=== PATIENT | male | born 1985 | race African-American/Black ===

== ENCOUNTER → 2023-01-27 | Emergency (ER) | payer SELFPAY ==
[~2023-01-27] MED LIST: FAMOTIDINE 20 MG/2 ML VIAL IV ONE; KETOROLAC 30 MG/ML INJ ONE; NA CHLORIDE 0.9% 1,000 ML ONE
--- NOTE | 2023-01-27 19:37 | RAD REPORT ---
EXAM DESCRIPTION: CT - Stone Protocol - 01/27/2023 6:55 pm CLINICAL HISTORY: left flank pain COMPARISON: No comparisons TECHNIQUE: Thin cut axial CT imaging of the abdomen and pelvis was performed without IV contrast. Mu ltiplanar reformats were generated and reviewed. All CT scans are performed using dose optimization technique as appropriate and may include automated exposure control or mA/KV adjustment according to patient size. FINDINGS: No suspicious findings in the lung bases. The liver, spleen, adrenal glands, and pancreas show no suspicious findings. Gallbladder and biliary tree are also without suspicious finding. Symmetric renal contour, without suspicious parenchymal findings within limits of noncontrast techniq ue. No evidence of radiopaque calculi or hydroureteronephrosis. No dilated bowel loops or bowel wall thickening. No free air, free fluid or inflammatory stranding. N o hernia, mass or bulky lymphadenopathy. The urinary bladder is without significant finding. No suspicious bony findings. IMPRESSION: No acute intra-abdominal process.
[2023-01-27 19:45] LABS: Albumin 3.7 g/dL (3.4-5.0); Bilirubin Total 0.4 mg/dL (0.2-1.0); Potassium 3.9 mEq/L (3.5-5.1); Protein, Total 8.2 g/dL (6.4-8.2)
[2023-01-27 19:46] LABS: Absolute Lymphocytes (CBC) 2.5 K/uL (0.7-4.9); Hematocrit 45.1 % (39.6-49.0); Lymphocytes % 29.3 % (15.3-44.8); MCV 87.9 fL (80-100); MPV 6.8 fL (7.6-11.3); Platelets 477 thou/uL (152-406); RBC Red Blood Cell Count 5.13 M/uL (4.33-5.43)
--- NOTE | 2023-01-27 20:15 | EDPHYS ---
Physician Documentation [facility] Name: Jack Kearns Age: 37 yrs Sex: Male : 1985 Arrival Date: 01/27/2023 Time: 17:10 Bed 7 Private MD: ED Physician Jl Shane HPI: 01/27 20:10 This 37 yrs old Black Male presents to ER via Ambulatory with complaints of Flank Pain. kdr 20:10 Patient reports he woke this morning his usual state of health. After he had gone to [facility] work and was preparing his workspace, he noted acute onset of left flank pain at the inferior costal margin. Patient has not had this before. He did fall about several months ago on his left side through his ceiling but had not had any pain from that of significance release not in this fashion. Patient denies any other trauma or injury. Patient is otherwise in his usual state of health without any other associated negative or positive review of systems.. Onset: The symptoms/episode began/occurred suddenly, this morning. Severity of symptoms: At their worst the symptoms were mild moderate in the emergency department the symptoms are unchanged. The patient has not experienced similar symptoms in the past. The patient has not recently seen a physician. Historical: - Allergies: 17:44 No Known Allergies; ko1 - Home Meds: 17:44 pregabalin 300 mg oral capsule 1 cap 2 times per day [Active]; ko1 - PMHx: 17:44 Hypertensive disorder; nerve pain; ko1 - PSHx: 17:44 None; ko1 - Immunization history:: Adult Immunizations unknown. - Social history:: Smoking status: Patient denies any tobacco usage or history of. ROS: 20:10 Constitutional: Negative for fever, chills, and weight loss, Eyes: Negative for injury, kdr pain, redness, and discharge, ENT: Negative for injury, pain, and discharge, Neck: Negative for injury, pain, and swelling, Cardiovascular: Negative for chest pain, palpitations, and edema, Respiratory: Negative for shortness of breath, cough, wheezing, and pleuritic chest pain, Back: Negative for injury and pain, : Negative for injury, bleeding, discharge, and swelling, MS/Extremity: Negative for injury and deformity, Skin: Negative for injury, rash, and discoloration, Neuro: Negative for headache, weakness, numbness, tingling, and seizure activity. Psych: Negative for depression, anxiety, suicide ideation, homicidal ideation, and hallucinations, Allergy/Immunology: Negative for hives, rash, and allergies, Endocrine: Negative for neck swelling, polydipsia, polyuria, polyphagia, and marked weight changes, Hematologic/Lymphatic: Negative for swollen nodes, abnormal bleeding, and unusual bruising, 20:10 Abdomen/GI: Positive for Left flank pain at the intercostal margin, not CVA tenderness, Exam: 20:10 Constitutional: This is a well developed, well nourished patient who is awake, alert, kdr and in no acute distress. Head/Face: Normocephalic, atraumatic. Eyes: Pupils equal round and reactive to light, extra-ocular motions intact. Lids and lashes normal. Conjunctiva and sclera are non-icteric and not injected. Cornea within normal limits. Periorbital areas with no swelling, redness, or edema. Neck: Trachea midline, no thyromegaly or masses palpated, and no cervical lymphadenopathy. Supple, full range of motion without nuchal rigidity, or vertebral point tenderness. No Meningismus. Chest/axilla: Normal chest wall appearance and motion. Nontender with no deformity. No lesions are appreciated. Cardiovascular: Regular rate and rhythm with a normal S1 and S2. No gallops, murmurs, or rubs. Normal PMI, no JVD. No pulse deficits. Respiratory: Lungs have equal breath sounds bilaterally, clear to auscultation and percussion. No rales, rhonchi or wheezes noted. No increased work of breathing, no retractions or nasal flaring. Back: No spinal tenderness. No costovertebral tenderness. Full range of motion. Skin: Warm, dry with normal turgor. Normal color with no rashes, no lesions, and no evidence of cellulitis. MS/ Extremity: Pulses equal, no cyanosis. Neurovascular intact. Full, normal range of motion. Neuro: Awake and alert, GCS 15, oriented to person, place, time, and situation. Cranial nerves II-XII grossly intact. Motor strength 5/5 in all extremities. Sensory grossly intact. Cerebellar exam normal. Normal gait. Psych: Awake, alert, with orientation to person, place and time. Behavior, mood, and affect are within normal limits. 20:10 Abdomen/GI: Inspection: abdomen appears normal, Bowel sounds: normal, Palpation: soft, nontender, Patient has some tenderness along the left costal margin at the posterior axillary line, Vital Signs: 17:41 BP 156 / 107; Pulse 64; Resp 14; Temp 98.2; Pulse Ox 100% ; ko1 19:30 BP 130 / 82; Pulse 63; Resp 16; Pulse Ox 100% on R/A; km8 20:00 BP 144 / 101; Pulse 64; Resp 16; Pulse Ox 99% on R/A; km8 20:30 BP 147 / 104; Pulse 85; Resp 16; Pulse Ox 100% on R/A; km8 21:00 BP 148 / 108; Pulse 62; Resp 16; Pulse Ox 98% on R/A; km8 22:00 BP 146 / 97; Pulse 59; Resp 16; Pulse Ox 100% on R/A; km8 [place] Coma Score: 19:25 Eye Response: spontaneous(4). Motor Response: obeys commands(6). Verbal Response: km8 oriented(5). Total: 15. MDM: 20:10 Data reviewed: vital signs, nurses notes, lab test result(s), radiologic studies. kdr 20:14 Patient medically screened. kdr 01/27 17:18 Order name: CBC with Diff; Complete Time: 20:09 kdr 01/27 17:18 Order name: CMP; Complete Time: 20:09 kdr 01/27 17:18 Order name: Lipase; Complete Time: 20:09 kdr 01/27 18:11 Order name: CT Stone Protocol; Complete Time: 19:45 kdr 01/27 20:27 Order name: Femur Left XRAY; Complete Time: 22:32 kdr 01/27 17:18 Order name: IV Saline Lock; Complete Time: 19:19 kdr 01/27 17:18 Order name: Labs collected and sent; Complete Time: 19:19 kdr Administered Medications: 19:25 Drug: NS 0.9% IV 1000 ml IV at 1 bolus Per protocol; 1000 mL bolus Route: IV; Rate: 1 km8 bolus; Site: right antecubital; 20:38 Follow up: IV Status: Completed infusion; IV Intake: 1000ml km8 19:25 Drug: Famotidine IVP 20 mg IVP once; dilute with 10 mL 0.9% NaCl; give over 2 minutes km8 Route: IVP; Site: right antecubital; 20:31 Follow up: Response: No adverse reaction [facility] 20:37 Drug: Ketorolac IVP 15 mg IVP once Route: IVP; Site: right antecubital; km8 22:24 Follow up: Response: No adverse reaction 8 Disposition Summary: 01/27/23 20:14 Discharge Ordered Notes: Location: Home kdr Problem: new kdr Symptoms: have improved kdr Condition: Stable kdr Diagnosis - Left flank pain, left infracostal pain kdr - Pain in left thigh kdr Followup: kdr - With: Private Physician - When: 2 - 3 days - Reason: If symptoms return, Further diagnostic work-up, Recheck today's complaints, Continuance of care, Re-evaluation by your physician Discharge Instructions: - Discharge Summary Sheet kdr - Flank Pain, Adult, [id number] kdr Forms: - Medication Reconciliation Form kdr - Thank You Letter kdr - Prescription Opioid Use kdr - Patient Portal Instructions kdr - Leadership Thank You Letter kdr - Work release form km8 Prescriptions: - Ibuprofen 600 mg Oral tablet - take 1 tablet ORAL route every 6 hours As needed take with food; 15 tablet; kdr Refills: 0, Product Selection Permitted - Tramadol 50 mg Oral Tablet - take 1 tablet ORAL route every 8 hours as needed; 12 tablet; Refills: 0, kdr Product Selection Permitted Signatures: Dispatcher [employer] Jl Steinberg MD MD kdr Hayley De La Cruz RN RN ko1 Eri Frost RN RN km8
--- NOTE | 2023-01-27 20:15 | ER ---
Nurse's Notes [facility] Name: Jack Kearns Age: 37 yrs Sex: Male : 1985 Arrival Date: 01/27/2023 Time: 17:10 Bed 7 Private MD: Diagnosis: Left flank pain, left infracostal pain;Pain in left thigh Presentation: 01/27 17:41 Chief complaint: Patient states: left sided flank pain since this morning, chronic rib ko1 pain, no urinary issues, fell through ceiling 2 months ago and hurt ribs was not seen at that time. Coronavirus screen: At this time, the client does not indicate any symptoms associated with coronavirus-19. Ebola Screen: No symptoms or risks identified at this time. Initial Sepsis Screen: Does the patient meet any 2 criteria? No. Patient's initial sepsis screen is negative. Does the patient have a suspected source of infection? No. Patient's initial sepsis screen is negative. Risk Assessment: Do you want to hurt yourself or someone else? Patient reports no desire to harm self or others. Onset of symptoms is unknown. 17:41 Method Of Arrival: Ambulatory ko1 17:41 Acuity: HIREN 4 ko1 Triage Assessment: 17:44 General: Appears in no apparent distress. Behavior is calm, cooperative, appropriate ko1 for age. Pain: Complains of pain in left flank. Historical: - Allergies: 17:44 No Known Allergies; ko1 - Home Meds: 17:44 pregabalin 300 mg oral capsule 1 cap 2 times per day [Active]; ko1 - PMHx: 17:44 Hypertensive disorder; nerve pain; ko1 - PSHx: 17:44 None; ko1 - Immunization history:: Adult Immunizations unknown. - Social history:: Smoking status: Patient denies any tobacco usage or history of. Screenin:25 [facility] ED Fall Risk Assessment (Adult) History of falling in the last 3 months, km8 including since admission No falls in past 3 months (0 pts) Confusion or Disorientation No (0 pts) Intoxicated or Sedated No (0 pts) Impaired Gait No (0 pts) Mobility Assist Device Used No (0 pt) Altered Elimination No (0 pt) Score/Fall Risk Level 0 - 2 = Low Risk Oriented to surroundings, Maintained a safe environment, Educated pt \T\ family on fall prevention, incl call for assistance when getting out of bed, Assessed \T\ reinforced patient's understanding of fall precautions. Abuse screen: Denies threats or abuse. Denies injuries from another. Nutritional screening: No deficits noted. Tuberculosis screening: No symptoms or risk factors identified. Assessment: 19:25 General: Appears in no apparent distress. uncomfortable, Behavior is calm, cooperative, km8 appropriate for age. Pain: Complains of pain in generalized Pain currently is 10 out of 10 on a pain scale. Quality of pain is described as aching. Neuro: Level of Consciousness is awake, alert, obeys commands, Oriented to person, place, time, situation. Cardiovascular: Capillary refill < 3 seconds Patient's skin is warm and dry. Respiratory: Airway is patent Respiratory effort is even, unlabored, Respiratory pattern is regular, symmetrical. GI: No signs and/or symptoms were reported involving the gastrointestinal system. : No signs and/or symptoms were reported regarding the genitourinary system. EENT: No signs and/or symptoms were reported regarding the EENT system. Derm: No signs and/or symptoms reported regarding the dermatologic system. Skin is intact, Skin is dry, Skin is pink, warm \T\ dry. normal, Skin temperature is warm. Musculoskeletal: Range of motion: intact in all extremities. 20:31 Reassessment: Patient appears in no apparent distress at this time. No changes from km8 previously documented assessment. Patient and/or family updated on plan of care and expected duration. Pain level reassessed. Patient is alert, oriented x 3, equal unlabored respirations, skin warm/dry/pink. 21:08 General: Xray at bedside. vc1 22:23 Reassessment: Patient appears in no apparent distress at this time. No changes from km8 previously documented assessment. Patient and/or family updated on plan of care and expected duration. Pain level reassessed. Patient is alert, oriented x 3, equal unlabored respirations, skin warm/dry/pink. Vital Signs: 17:41 BP 156 / 107; Pulse 64; Resp 14; Temp 98.2; Pulse Ox 100% ; ko1 19:30 BP 130 / 82; Pulse 63; Resp 16; Pulse Ox 100% on R/A; km8 20:00 BP 144 / 101; Pulse 64; Resp 16; Pulse Ox 99% on R/A; km8 20:30 BP 147 / 104; Pulse 85; Resp 16; Pulse Ox 100% on R/A; km8 21:00 BP 148 / 108; Pulse 62; Resp 16; Pulse Ox 98% on R/A; km8 22:00 BP 146 / 97; Pulse 59; Resp 16; Pulse Ox 100% on R/A; km8 [place] Coma Score: 19:25 Eye Response: spontaneous(4). Motor Response: obeys commands(6). Verbal Response: km8 oriented(5). Total: 15. ED Course: 17:13 Patient arrived in ED. im 17:15 Jl Shane MD is Attending Physician. kdr 17:44 Triage completed. ko1 17:44 Arm band placed on right wrist. Patient placed in waiting room, Patient notified of ko1 wait time. 18:57 CT Stone Protocol In Process Unspecified. EDMS 19:19 CBC with Diff Sent. km8 19:19 CMP Sent. km8 19:19 Lipase Sent. km8 19:19 Inserted saline lock: 20 gauge in right antecubital area, using aseptic technique. km8 Blood collected. 19:25 Patient has correct armband on for positive identification. Bed in low position. Call km8 light in reach. Side rails up X 1. Pulse ox on. NIBP on. Door closed. Noise minimized. Lights dimmed. Warm blanket given. 19:25 No provider procedures requiring assistance completed. Patient maintains SpO2 km8 saturation greater than 95% on room air. 21:58 Femur Left XRAY In Process Unspecified. EDMS 22:32 IV discontinued, intact, bleeding controlled, No redness/swelling at site. Pressure km8 dressing applied. 22:33 Provided Education on: d/c teaching. km8 Administered Medications: 19:25 Drug: NS 0.9% IV 1000 ml IV at 1 bolus Per protocol; 1000 mL bolus Route: IV; Rate: 1 km8 bolus; Site: right antecubital; 20:38 Follow up: IV Status: Completed infusion; IV Intake: 1000ml km8 19:25 Drug: Famotidine IVP 20 mg IVP once; dilute with 10 mL 0.9% NaCl; give over 2 minutes km8 Route: IVP; Site: right antecubital; 20:31 Follow up: Response: No adverse reaction km8 20:37 Drug: Ketorolac IVP 15 mg IVP once Route: IVP; Site: right antecubital; km8 22:24 Follow up: Response: No adverse reaction km8 Medication: 19:25 VIS not applicable for this client. km8 Intake: 20:38 IV: 1000ml; Total: 1000ml. km8 Outcome: 20:14 Discharge ordered by . kdr 22:33 Discharged to home ambulatory, km8 22:33 Condition: good 22:33 Discharge instructions given to patient, Instructed on discharge instructions, follow up and referral plans. medication usage, Demonstrated understanding of instructions, follow-up care, medications, Prescriptions given X 2, 22:38 Patient left the ED. km8 Signatures: Dispatcher [employer] EDMS Jl Shane MD MD kdr Calcote, Vanessa RN RN vc1 Hayley De La Cruz RN RN ko1 Lenore Colvin Katie, RN RN km8
--- NOTE | 2023-01-27 22:17 | RAD REPORT ---
EXAM DESCRIPTION: RAD - Femur Left - 01/27/2023 9:56 pm CLINICAL HISTORY: PAIN COMPARISON: No comparisons TECHNIQUE: Left femur, 2 views. FINDINGS: No fracture is identified. There is no dislocation or periosteal reaction noted. Osseous bumps near the femoral head/ neck junction, may predispose to femoroacetabular impingement. Mild dege nerative changes at the patellofemoral articulation. Mild enthesopathy at the quadriceps tendon attac hment. No acute or suspicious bony finding. IMPRESSION: No acute osseus abnormality. Findings as above.
[2023-01-27 23:16] VITALS: TEMP 98.2; O2SAT 100
[2023-01-27 23:33] VITALS: BP 146/97
== END ==
LOC: ER 17:10
DX: R10.9 Unspecified abdominal pain (principal); R07.82 Intercostal pain; M79.652 Pain in left thigh
CPT/HCPCS: 36415; 74176; 76377; 80053; 83690; 85025; 96361; 96374; 96375; 99285; J7030